=== PATIENT | female | born 1980 | race Two or more races ===

== ENCOUNTER 2021-05-04 19:42 | Emergency (ER) | payer MEDICAID, OTHER ==
[~2021-05-04] VITALS: Ht 160 cm; Wt 140.6 kg
[2021-05-04 21:00] VITALS: BP 138/73
== END 2021-05-05 02:47 | disposition home or self-care (01) ==
LOC: ER 19:45
DX: R21 Rash and other nonspecific skin eruption (principal); Z00.00 Encounter for general adult medical examination without abnormal findings